=== PATIENT | female | born 1960 | race Caucasian/White ===

== ENCOUNTER 2023-12-30 09:30 | Emergency (ER) | payer BC, SELFPAY ==
[2023-12-30 09:32] VITALS: BP 132/90
--- NOTE | 2023-12-30 09:45 | EDRN ---
Chantell PA in room w/ pt
--- NOTE | 2023-12-30 09:54 | ED.GENMED ---
History of Present Illness
General
Chief Complaint: Abdominal Pain
Source: patient
Time Seen by Provider: 12/30/23 09:36
History of Present Illness
History of Present Illness:
63-year-old female with past medical history of GERD presenting to the emergency department for evaluation of periumbilical abdominal pain since Saturday, abdominal bloating and some decreased p.o. intake to solids, this morning pain was little bit
more sharp on the right side of her abdomen when she palpated the area and was recommended to come to the ER for further evaluation. 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
Patient notes associated nausea but states all her symptoms seem to be very mild. She denies any fevers, chills, rigors, bowel changes or urinary symptoms. Denies any history of similar. Patient had no surgical history. Social history
noncontributory.
Past History
Past History
ED Past Medical History: GERD
ED Past Surgical History: None
Social History
Tobacco: Non-smoker
Alcohol: Occasional
Drug: None
Personal:
Living: with family
Employment: Employed
Review of Systems
Review of Systems
All Other Systems: ROS reviewed and negative except as documented in HPI and ROS
Phy Exam
Physical Exam
Physical Exam:
GENERAL: Alert , in no apparent distress
EYE: clear conjunctiva b/l
HEAD: NCAT
ENT: mmm.
CARDIAC: Regular rate and rhythm .
LUNGS: Clear breath sounds bilaterally, no acute respiratory distress, no wheezes/rales/rhonchi
ABDOMEN: Soft, generalized tenderness however pain seem to be worse around the periumbilical region and right mid abdomen, no r/g, no cvat,
NEUROLOGICAL: Alert and oriented
SKIN: Warm and dry, skin intact.
MUSCULOSKELETAL:, well perfused.
PSYCH: Normal and appropriate interaction.
Scores
Heart Failure Risk
Heart Failure Risk Score: Not Applicable
Heart Score for Chest Pain Patients
STEMI patient?: Not applicable
Withdrawal Assessment of Alcohol
Withdrawal Assessment Completed?: Not applicable
Course
Orders/Labs/Results
Orders:
Orders
12/30/23 09:50
CT Abd/pelvis W Iv Cont Urgent
Comment:
Reason For Exam: periumbilical abd pain x 3 days
12/30/23 10:14
Complete Blood Count/With Diff Urgent
Comprehensive Metabolic Panel Urgent
Lipase Urgent
Urinalysis Reflex To Culture Urgent
Date Specimen was Collected: 12/30/23
Time Specimen was Collected: 10:07
12/30/23 11:06
Electrocardiogram (*1) Urgent
Reason for Study: Abdominal Pain
EKG- Treatment ONCE
12/30/23 11:10
Troponin I Urgent
Abnormal Lab Results
12/30/23
10:14
MPV 10.8 H fL
(7.4-10.4)
AST 38 H U/L
(14-36)
12/30/23 10:14
12/30/23 10:14
Vital Signs
Initial and Last Documented VS:
Initial Vital Signs
Temp Pulse BP Pulse Ox
98.3 F 80 132/90 99
12/30/23 09:32 12/30/23 09:32 12/30/23 09:32 12/30/23 09:32
Last Documented Vital Signs
Temp Pulse Resp BP Pulse Ox
98.3 F 81 15 116/69 99
12/30/23 09:32 12/30/23 12:00 12/30/23 12:00 12/30/23 12:00 12/30/23 12:00
MDM/Problems Addressed
Differential Diagnosis Includes:
GERD, gastritis, pancreatitis, cholecystitis, appendicitis, renal/ureteral colic
MDM/Problems Addressed:
63-year-old female presenting emergency department for evaluation of some periumbilical discomfort since Saturday, mild nausea and slightly decreased p.o. intake. Today patient had her abdomen palpated and had sharper pain in the right side of her
abdomen and it was recommended she come to the ER to be further evaluated. Patient is currently declining anything for her symptoms. Will check labs and CT imaging. Reassessment and disposition pending.
*Radiology
Radiology exam reviewed: radiology read reviewed (Colonic diverticulosis without diverticulitis, otherwise unremarkable CT scan)
*Pulse Oximetry
Patient hypoxic: no
*EKG
Interpreted by ED Provider?: Yes
Comparison EKG: no comparison EKG present
Heart Rate: 83
Rate: normal
Rhythm: sinus
[place]: normal axis
Ischemia: no ischemia
*[facility] Interpretation
Rate: normal
Rhythm: sinus
*Critical Care Note
Total Time (30-74mins, 75-104mins- exclusive of procedures): Not Applicable
Comment
Comment:
11:06 AM: Patient reevaluated and notified that labs are unremarkable and awaiting CT. She states that about 30 minutes or so ago she started noticed a change in the pain and it was wrapping around her back and into the upper part of her abdomen
now. I added on an EKG and troponin to patient's workup for possible atypical ACS presentation.
Patient Management
Escalation/DeEscalation of care consider admission/obs:
EKG and troponin are within normal limits. CT is without any acute surgical findings. Patient stable for discharge home and outpatient follow-up with primary care provider. Aware of return precautions to the ER. Otherwise stable for discharge
home.
ED Attending Note
-
Portions of this chart may have been created with voice recognition software.� Occasional wrong word or��sound alike� substitutions may have occurred due to the inherent limitations of voice recognition software.
Discharge Plan
Departure
Patient Disposition: Home (Routine Discharge)
Date of Disposition: 12/30/23
Time of Disposition: 11:50
Patient with high blood pressure during this ER visit?: No
Discharge Problem:
Abdominal pain
Instructions: Abdominal Pain
Referrals:
Luna Collins CRNP [Family Provider] -
Stand Alone Forms: Return to Work
Interventions
Interventions:
*Risk Screen - Suicide Last Done: 12/30/23 09:33
*General Assessment Last Done: 12/30/23 09:33
*Neglect/Abuse Screening Last Done: 12/30/23 09:33
ED- Fall Risk Assessment Last Done: 12/30/23 10:08
*ED COVID-19 Vaccine History Last Done: 12/30/23 10:08
*Nursing Disposition Last Done: 12/30/23 12:07
SU-Uavsay-Jmpfnceven Assessment Last Done: 12/30/23 10:20
Discharge Date and Time
Discharge Date/Time: 12/30/23 12:07
Print Language: EQUATORIAL GUINEAN
[2023-12-30 10:07] VITALS: BMI 30.8
[2023-12-30 10:15] VITALS: BP 136/97
[2023-12-30 10:31] LABS: % Basophils 0.8 % (0-2); % Eosinophils 1.1 % (0-6); % Immature Granulocytes 0.1 % (0-0.5); % Lymphocytes 27.7 % (20.5-51.1); % Monocytes 7.8 % (1.7-9.3); % Neutrophils 62.5 % (42.2-75.2); Absolute Basophils 0.1 10^3/uL (0-0.2); Absolute Eosinophils 0.1 10^3/uL (0-0.7); Absolute Lymphocytes 2.1 10^3/uL (1.2-3.4); Absolute Monocytes 0.6 10^3/uL (0.1-0.6); Absolute Neutrophils 4.7 10^3/uL (1.4-6.5); Hematocrit 39.5 % (37.0-47.0); Hemoglobin 13.5 g/dL (12.0-16.0); Mean Corp Hgb Conc. 34.2 g/dL (33.0-37.0); Mean Corpuscular Hgb 28.6 pg (27.0-31.0); Mean Corpuscular Volume 83.7 fL (81.0-99.0); Mean Platelet Volume 10.8 fL (7.4-10.4); Nucleated Red Blood Cells % 0 %; Platelet Count 289 10^3/uL (130-400); Red Blood Cell Count 4.72 10^6/uL (4.20-5.40); Red Cell Dist. Width 13.1 % (11.5-14.5); White Blood Cell Count 7.5 10^3/uL (4.8-10.8)
[2023-12-30 10:37] LABS: ALT (SGPT) 27 U/L (0-35); AST (SGOT) 38 U/L (14-36); Albumin 4.4 g/dl (3.5-5.0); Alkaline Phosphatase 88 U/L (38-126); Blood Urea Nitrogen 15 mg/dl (7-17); Calcium 9.8 mg/dl (8.4-10.2); Carbon Dioxide 28 mmol/L (22-30); Chloride 105 mmol/L (98-107); Estimated Creatinine Clearance 82 ml/min; Glucose 98 mg/dl (70-99); Lipase 100 U/L (23-300); Potassium 4.3 mmol/L (3.5-5.1); Sodium 138 mmol/L (135-145); Total Bilirubin 0.5 mg/dl (0.2-1.3); Total Protein 6.7 g/dl (6.3-8.2); eGFR > 60.00
[2023-12-30 10:54] LABS: Urine Albumin Negative (Neg - Trace); Urine Bilirubin Negative (Negative); Urine Character Clear (Clear); Urine Color Yellow; Urine Glucose Negative (Negative); Urine Ketone Negative (Negative); Urine Leukocyte Negative (Negative); Urine Nitrite Negative (Negative); Urine Occult Blood Negative (Negative); Urine Urobilinogen Negative (Neg - 1+)
[2023-12-30 11:05] VITALS: BP 127/83
[2023-12-30 11:39] LABS: Troponin I < 0.012 ng/ml
[2023-12-30 12:00] VITALS: BP 116/69
== END 2023-12-30 12:07 | disposition home or self-care (01) ==
LOC: EMR 09:30
PROVIDERS: Physician Assistant Medical; EMERGENCY PHYSICIAN Emergency Medicine; FAMILY PHYSICIAN Nurse Practitioner Adult Health
DX: R10.9 Unspecified abdominal pain (principal); K21.9 Gastro-esophageal reflux disease without esophagitis
CPT/HCPCS: 99284; 74177; 80053; 81003; 83690; 84484; 85025; 93005; Q9967

== ENCOUNTER → 2024-07-03 12:14 | Outpatient (REF) | payer BC, SELFPAY | LOC: HWWDC 12:14 | PROVIDERS: ATTENDING PHYSICIAN Obstetrics & Gynecology; FAMILY PHYSICIAN Nurse Practitioner Adult Health | DX: Z12.31 Encounter for screening mammogram for malignant neoplasm of breast (principal) | CPT/HCPCS: 77063; 77067 ==